=== PATIENT | male | born 1995 | race Caucasian/White ===

== ENCOUNTER 2017-10-31 18:23 | Emergency (ER) | payer MEDICAID ==
[~2017-10-31] VITALS: Ht 170.2 cm; Wt 98.4 kg
[2017-10-31 18:27] VITALS: Ht 170.2 cm; Wt 98.4 kg
[2017-10-31 20:13] VITALS: BP 126/78
== END 2017-10-31 20:13 | disposition home or self-care (01) ==
LOC: EDSEX 18:23 → ED 18:23
DX: M25.512 Pain in left shoulder (principal); M79.1 Myalgia; R03.0 Elevated blood-pressure reading, without diagnosis of hypertension; F17.210 Nicotine dependence, cigarettes, uncomplicated

== ENCOUNTER 2018-03-25 08:27 | Emergency (ER) | payer SELFPAY ==
[~2018-03-25] VITALS: Ht 170.2 cm; Wt 78.0 kg
[2018-03-25 08:41] VITALS: Ht 170.2 cm; Wt 78.0 kg
[2018-03-25 09:37] LABS: BASOPHIL % 0.2 % (0-2); PLATELET COUNT 301 x10^3mcL (130-400)
[2018-03-25 09:43] LABS: CALCIUM 9.5 mg/dL (8.5-10.1); CARBON DIOXIDE 25.1 mmol/L (21-32); CHLORIDE SERUM 102 mmol/L (98-107); CREATININE SERUM 0.8 mg/dL (0.7-1.3); GFR1 > 60 mL/min; GLUCOSE SERUM 88 mg/dL (74-106); POTASSIUM SERUM 3.9 mmol/L (3.5-5.1); SODIUM SERUM 137 mmol/L (136-145)
[2018-03-25 09:47] LABS: ALBUMIN 4.7 g/dL (3.4-5.0); ALKALINE PHOSPHATASE 76 U/L (46-116); ALT/SGPT 57 U/L (16-63); AST/SGOT 39 U/L (15-37); BILIRUBIN TOTAL 0.61 mg/dL (0.20-1.00); CHOLESTEROL 159 mg/dL (<200); HDL CHOLESTEROL 36 mg/dL (40-60); PHOSPHOROUS 2.9 mg/dL (2.5-4.9); URIC ACID 4.6 mg/dL (3.5-7.2)
[2018-03-25 09:50] LABS: TOTAL PROTEIN, SERUM 8.6 g/dL (6.4-8.2)
[2018-03-25 13:26] VITALS: BP 124/82
== END 2018-03-25 13:26 | disposition home or self-care (01) ==
LOC: ED 08:27
PROVIDERS: Emergency Medicine
DX: S01.21XA Laceration without foreign body of nose, initial encounter (principal); S39.91XA Unspecified injury of abdomen, initial encounter; S29.9XXA Unspecified injury of thorax, initial encounter; V49.69XA Unspecified car occupant injured in collision with other motor vehicles in traffic accident, initial encounter; Y93.I9 Activity, other involving external motion; Y92.488 Other paved roadways as the place of occurrence of the external cause; Y99.8 Other external cause status
CPT/HCPCS: 83880; 90715; J1885; J2001; J3010; Q0092; Q9967

== ENCOUNTER 2018-03-28 11:23 | Emergency (ER) | payer SELFPAY ==
[~2018-03-28] VITALS: Ht 170.2 cm; Wt 96.6 kg
[2018-03-28 11:52] LABS: microscopic required? NO
[2018-03-28 12:00] LABS: PLATELET COUNT 296 x10^3mcL (130-400); RED CELL DISTRIBUTION WIDTH 12.3 % (11.5-14.5)
[2018-03-28 12:02] LABS: UA SPECIFIC GRAVITY <=1.005 (1.005-1.035); urine erythrocyte NEGATIVE (NEGATIVE)
[2018-03-28 12:24] LABS: CALCIUM 9.8 mg/dL (8.5-10.1); CARBON DIOXIDE 29.4 mmol/L (21-32); CHLORIDE SERUM 102 mmol/L (98-107); GFR1 > 60 mL/min; GLUCOSE SERUM 103 mg/dL (74-106); POTASSIUM SERUM 3.9 mmol/L (3.5-5.1); SODIUM SERUM 137 mmol/L (136-145)
[2018-03-28 12:28] LABS: ALBUMIN 4.3 g/dL (3.4-5.0); ALKALINE PHOSPHATASE 76 U/L (46-116); ALT/SGPT 55 U/L (16-63); AST/SGOT 27 U/L (15-37); BILIRUBIN TOTAL 0.55 mg/dL (0.20-1.00); LIPASE 182 IU/L (73-393)
[2018-03-28 12:31] LABS: TOTAL PROTEIN, SERUM 8.3 g/dL (6.4-8.2)
[2018-03-28 12:33] LABS: BAND NEUTROPHIL 2 % (0-10); BASOPHIL 0 % (0-2); MONOCYTE 9 % (0-7); SEGMENTED NEUTROPHILS 71 % (37-75)
[2018-03-28 12:44] LABS: AMPHETAMINE QUAL UR NONE DETECTED (See below)
[2018-03-28 13:39] VITALS: BP 152/97
== END 2018-03-28 13:39 | disposition home or self-care (01) ==
LOC: ED 11:23
PROVIDERS: Emergency Medicine
DX: S50.12XA Contusion of left forearm, initial encounter (principal); R10.11 Right upper quadrant pain; R07.89 Other chest pain; F19.10 Other psychoactive substance abuse, uncomplicated; V89.2XXA Person injured in unspecified motor-vehicle accident, traffic, initial encounter; Y93.89 Activity, other specified; Y92.89 Other specified places as the place of occurrence of the external cause; Y99.8 Other external cause status
CPT/HCPCS: J2405; J3010; J7030; Q9967

== ENCOUNTER 2018-04-01 12:17 | Emergency (ER) | payer SELFPAY ==
[~2018-04-01] VITALS: Ht 170.2 cm; Wt 95.7 kg
[2018-04-01 12:25] VITALS: BP 160/89; Ht 170.2 cm; Wt 95.7 kg
== END 2018-04-01 13:03 | disposition home or self-care (01) ==
LOC: ED 12:17
DX: S01.21XD Laceration without foreign body of nose, subsequent encounter (principal); V89.2XXD Person injured in unspecified motor-vehicle accident, traffic, subsequent encounter

== ENCOUNTER 2019-08-02 12:19 | Emergency (ER) | payer MEDICAID ==
[~2019-08-02] VITALS: Ht 170.2 cm; Wt 98.9 kg
[2019-08-02 12:22] VITALS: BP 121/79; Ht 170.2 cm; Wt 98.9 kg
== END 2019-08-02 12:58 | disposition home or self-care (01) ==
LOC: ED 12:19
DX: S13.4XXA Sprain of ligaments of cervical spine, initial encounter (principal); V49.9XXA Car occupant (driver) (passenger) injured in unspecified traffic accident, initial encounter; Y93.I9 Activity, other involving external motion; Y92.413 State road as the place of occurrence of the external cause; Y99.8 Other external cause status
CPT/HCPCS: J1885

== ENCOUNTER 2020-02-13 23:55 | Emergency (ER) | payer OTHER ==
[~2020-02-13] VITALS: Ht 177.8 cm; Wt 102.1 kg
[2020-02-14 00:04] VITALS: Ht 177.8 cm; Wt 102.1 kg
[2020-02-14 04:42] VITALS: BP 135/68
== END 2020-02-14 04:42 | disposition home or self-care (01) ==
LOC: ED 23:55
DX: M54.2 Cervicalgia (principal); V43.52XA Car driver injured in collision with other type car in traffic accident, initial encounter; W22.11XA Striking against or struck by driver side automobile airbag, initial encounter; Y93.I9 Activity, other involving external motion; Y92.413 State road as the place of occurrence of the external cause; Y99.8 Other external cause status
CPT/HCPCS: J2270; J2405; Q0092